=== PATIENT | male | born 1980 | race Two or more races ===

== ENCOUNTER 2017-07-11 22:59 | Inpatient (IN) | payer SELFPAY ==
[~2017-07-11] VITALS: Ht 177.8 cm; Wt 83.9 kg
[2017-07-11] MEDS ORDERED: diphenhydrAMINE HCL 50 MG/ML VIAL ONE (23:05)
[2017-07-11] MEDS ORDERED: LORAZEPAM INJ 2 MG/ML VIAL ONE (23:05)
[2017-07-11] MEDS ORDERED: HALOPERIDOL LACTATE INJ 5 MG/ML VIAL ONE (23:05)
--- NOTE | 2017-07-11 23:19 | NUR ---
[facility] to ER; altered- possible OD on drugs
[2017-07-11 23:22] LABS: BASOPHILS % (AUTO) 0.5 % (0.0-2.0); EOSINOPHILS % (AUTO) 0.3 % (0.0-6.0); HEMATOCRIT 46 % (39-51); HEMOGLOBIN 15.6 g/dL (13.5-17.5); LYMPHOCYTES # (AUTO) 2.8 /CMM (0.8-4.8); LYMPHOCYTES % (AUTO) 38.3 % (20.0-44.0); MEAN CORPUSCULAR HEMOGLOBIN 30 PG (26.0-33.0); MEAN CORPUSCULAR HGB CONC 34 g/dl (31.0-36.0); MEAN CORPUSCULAR VOLUME 87 fL (80-96); MONOCYTES # (AUTO) 0.6 /CMM (0.1-1.30); MONOCYTES % (AUTO) 7.7 % (2.0-12.0); NEUTROPHILS # (AUTO) 3.9 /CMM (1.8-8.9); NEUTROPHILS % (AUTO) 53.2 % (43.0-81.0); PLATELET COUNT (AUTO) 366 /CMM (150-450); RDW COEFFICIENT OF VARIATION 14.9 (11.5-15.0); RED BLOOD CELL COUNT(AUTO) 5.28 MIL/uL (4.5-6.0); WHITE BLOOD COUNT (AUTO) 7.4 K/uL (4.3-11.0)
[2017-07-11] MEDS ORDERED: HALOPERIDOL LACTATE INJ 5 MG/ML VIAL IVP ONE (23:30)
[2017-07-11] MEDS ORDERED: IV NS 0.9% 1,000 ML BAG IV ONE (23:30)
[2017-07-11] MEDS ORDERED: LORAZEPAM INJ 2 MG/ML VIAL IVP ONE (23:30)
[2017-07-11] MEDS ORDERED: diphenhydrAMINE HCL 50 MG/ML VIAL IV ONE (23:30)
--- NOTE | 2017-07-11 23:32 | NUR ---
med given as ordered by
--- NOTE | 2017-07-11 23:33 | NUR ---
PT ON MONITOR, IN BED, IV PLACED, LABS DRAWN AND SENT TO LAB, MD MADE AWARE WILL CONTINUE TO MONITOR.
[2017-07-11 23:52] LABS: CALCIUM, SERUM 9.4 mg/dL (8.5-10.1); CARBON DIOXIDE 19 mmol/L (21-32); CHLORIDE 100 mmol/L (98-107); CREATININE 2.3 mg/dL (0.6-1.3); GLUCOSE 213 mg/dL (74-106); POTASSIUM 3.2 mmol/L (3.5-5.1); SODIUM SERUM 146 mmol/L (136-145); UREA NITROGEN, BLOOD 14 mg/dL (7-18)
[2017-07-11 23:53] LABS: ALANINE AMINOTRANSFERASE 210 U/L (12-78); ALBUMIN 5.2 g/dL (3.4-5.0); ALCOHOL, BLOOD 126 mg/dL (0-0); ALKALINE PHOSPHATASE 94 U/L (46-116); ASPARTATE AMINOTRANSFERASE 462 U/L (15-37); BILIRUBIN,DIRECT 0.2 mg/dL (0.0-0.2); BILIRUBIN,TOTAL 1.2 mg/dL (0.2-1.0); SALICYLATE 0.7 mg/dL (2.8-20.0); TOTAL PROTEIN, SERUM 9.6 g/dL (6.4-8.2)
[2017-07-11 23:54] LABS: ACETAMINOPHEN 0 ug/ml (10-30)
[2017-07-12 00:02] LABS: CREATINE KINASE, TOTAL 16391 U/L (39-308)
--- NOTE | 2017-07-12 00:20 | NUR ---
PT ON MONITOR, PT GOING XRAY, MADE AWARE WILL CONTINUE TO MONITOR.
--- NOTE | 2017-07-12 00:20 | NUR ---
LAB AT BEDSIDE DRAWING
[2017-07-12] MEDS ORDERED: IV 1/2NS 1000 ML 1,000 ML IV ONE (00:43)
[2017-07-12 00:49] LABS: INR 1.04 (0.87-1.13); PROTHROMBIN TIME 11.1 SECS (9.5-12.7)
[2017-07-12] MEDS ORDERED: SODIUM BICARBONATE 5 ML VIAL ONE (00:57)
[2017-07-12] MEDS ORDERED: IV NS 0.9% 1,000 ML BAG IV ONE (01:00)
--- NOTE | 2017-07-12 01:03 | NUR ---
ASSUMED CARE. RECEIVED REPORT FROM ALYSA HERZOG. PT AAOX4 CALM AND COOPERATIVE. TOTAL PT CARE DONE. PT DENIES PAIN OR DISCOMFORT AT THIS TIME. CALL LIGHT WITHIN REACH. WILL CONTINUE TO MONITOR PT CLOSELY.
[2017-07-12 01:13] LABS: CREATINE KINASE MB 82.6 ng/mL (0-3.6)
[2017-07-12] MEDS ORDERED: TDAP [DIPH/PERTUSSIS/TET] 0.5 ML VIAL IM ONE ×2 (01:30→02:45)
[2017-07-12 01:39] LABS: TROPONIN I < 0.017 ng/mL (0.00-0.056)
--- NOTE | 2017-07-12 01:52 | NUR ---
PT AAOX4 NO ACUTE DISTRESS NOTED, RESP EVEN AND UNLABORED. PT CALM AND COOPERATIVE AT THIS TIME.
[2017-07-12] MEDS ORDERED: BUPIVACAINE 0.5 % PF 150 MG/30 ML VIAL ONE (02:01)
--- NOTE | 2017-07-12 02:34 | NUR ---
REPORT CALLED TO TEAM MEMBERALYSA KAUR. WILL TRANSPORT PT TO ROOM 313-1
[2017-07-12] MEDS ORDERED: IV 1/2NS 1000 ML 500 ML IV ONE (02:40)
[2017-07-12] MEDS ORDERED: Z GUARD REMEDY 2 OZ OINT TP PRN (03:00)
[2017-07-12] MEDS ORDERED: ONDANSETRON HCL/PF 4 MG/2 ML VIAL IVP PRN (03:00)
[2017-07-12] MEDS ORDERED: MORPHINE SULFATE INJ 2 MG/ML DISP.SYRIN IV PRN (03:00)
[2017-07-12] MEDS ORDERED: ACETAMINOPHEN 325 MG TABLET PO PRN (03:00)
[2017-07-12] MEDS ORDERED: SODIUM BICARBONATE SYR 100 MEQ in IV D5W 1,000 ML IV PRN (03:00)
[2017-07-12] MEDS ORDERED: ZOLPIDEM TARTRATE 5 MG TABLET PO PRN (03:00)
--- NOTE | 2017-07-12 03:30 | NUR ---
PT TRASNPORTED TO TELE VIA ACLS PROTOCOL.
[2017-07-12] MEDS: IV NS 0.9% 1,000 ML IV PRN ×3 (03:55→08:08)
[2017-07-12 04:00] VITALS: BP 142/93
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
[2017-07-12] MEDS: CEFAZOLIN 2 GM in IV D5W 50 ML IV SCH ×3 (04:56→20:19)
--- NOTE | 2017-07-12 05:12 | NUR ---
MANAGEMENT SPECIALIST NOTES ANCEF 2 GM IN D5W 50 ML SCHEDULED AT 0500 PATIENT REFUSES HIS I.V ANTIBIOTIC PER PATIENT HE DOESN'T NEED IT AND VERBALIZE THAT "I DON'T WANT ANY ANTIBIOTIC IN MY SYSTEM" DESPITE EXPLANATION OF RISKS AND BENEFITS, Nicky MADE AWARE OF PATIENT BEING NON COMPLIANT WITH HIS MEDICATION
--- NOTE | 2017-07-12 06:20 | NUR ---
PAINT MIXER HAND NOTES NA BICARB 100 MEQ IN D5W IN 1000L UNABLE TO START CALLED CHARGE NURSE BUT IT IS NOT AVAILABLE IN THE OMNICE[facility], CALLED NURSING MACHINE REBUILDER IT NOT AVAILABLE WELL, WILL FF WITH THE PHARMACY TODAY.
[2017-07-12 06:41] LABS: BASOPHILS % (AUTO) 0.4 % (0.0-2.0); HEMATOCRIT 36 % (39-51); HEMOGLOBIN 12.3 g/dL (13.5-17.5); LYMPHOCYTES # (AUTO) 1.3 /CMM (0.8-4.8); LYMPHOCYTES % (AUTO) 18.8 % (20.0-44.0); MEAN CORPUSCULAR HEMOGLOBIN 30 PG (26.0-33.0); MEAN CORPUSCULAR HGB CONC 34 g/dl (31.0-36.0); MEAN CORPUSCULAR VOLUME 87 fL (80-96); MONOCYTES # (AUTO) 0.8 /CMM (0.1-1.30); MONOCYTES % (AUTO) 12.2 % (2.0-12.0); NEUTROPHILS # (AUTO) 4.6 /CMM (1.8-8.9); NEUTROPHILS % (AUTO) 68.6 % (43.0-81.0); PLATELET COUNT (AUTO) 230 /CMM (150-450); RDW COEFFICIENT OF VARIATION 15.2 (11.5-15.0); RED BLOOD CELL COUNT(AUTO) 4.11 MIL/uL (4.5-6.0); WHITE BLOOD COUNT (AUTO) 6.8 K/uL (4.3-11.0)
--- NOTE | 2017-07-12 06:42 | NUR ---
SWITCHBOX ASSEMBLER NOTES PATIENT COMFORTABLY ASLEEP AND EASILY AWAKEN, HEAD OF BED ELEVATED FOR BETTER LUNG EXPANSION AND GOOD CIRCULATION. NOT IN ACUTE/RESPIRATORY DISTRESS. TOLERATING ROOM AIR 02 SAT 98% RESPIRATIONS EVEN AND UNLABORED PATIENT RFA 18 G IV SITE INTACT WITH NO S/S OF INFILTRATED PATENT AND FLUSHED, FREQUENT VISUAL CHECK DONE FOR SAFETY EVERY 2 HOURS. NURSING CARE RENDERED, NEEDS ATTENDED AND ANTICIPATED, KEPT CLEAN AND DRY AND COMFORTABLE, PATIENT STILL REFUSES WOUND ASSESSMENT OF HIS SKIN. SAFE HAZARD FREE ENVIRONMENT PROVIDED. CALL LIGHT WITHIN EASY TO REACH, ON LOW BED AT ALL TIMES TO ENSURE SAFETY, WILL ENDORSE TO THE NEXT SHIFT CONTINUE PLAN OF CARE
--- NOTE | 2017-07-12 06:45 | NUR ---
FLIGHT INFORMATION EXPEDITER NOTES RE ORIENTATION WAS DONE WITH THE PATIENT
[2017-07-12 07:16] LABS: CALCIUM, SERUM 7.2 mg/dL (8.5-10.1); MAGNESIUM 1.5 mg/dL (1.8-2.4); PHOSPHORUS 3.8 mg/dL (2.5-4.9)
[2017-07-12 08:00] VITALS: BP 120/71
--- NOTE | 2017-07-12 08:16 | NUR ---
RN NOTES RECEIVED PT. PT IS STABLE AND RESTING IN BED, A/OX4. NO S/S OF DISTRESS OR SOB. NO C/O PAIN AT THIS TIME. 1 TO 1 SITTER IS AT BEDSIDE. PT IS ON ROOM AIR, O2SAT WNL. IV ACCESS LOCATED ON RIGHT FOREARM, 18G. RUNNING NS AT 500 ML/HR. SAFETY MEASURES IN PLACE, CALL LIGHT WITHIN REACH. WILL CONTINUE TO MONITOR.
[2017-07-12] MEDS ORDERED: POTASSIUM CHLORIDE 20 MEQ TAB.PRT.SR PO ONE (09:30)
[2017-07-12] MEDS: Thiamine 100 MG in IV D5W 50 ML IV SCH (10:19)
[2017-07-12] MEDS: Magnesium 1GM/D5W 100ML PREMIX 100 ML IV SCH ×2 (13:32→15:56)
[2017-07-12 16:00] VITALS: BP 136/91
[2017-07-12] MEDS: MORPHINE SULFATE INJ 4 MG/ML DISP.SYRIN IV PRN ×2 (16:08→20:23)
--- NOTE | 2017-07-12 18:50 | NUR ---
RN CLOSING NOTES PT IS IN BED RESTING. NO S/S OF DISTRESS OR SOB. NO C/O PAIN AT THIS TIME. PT HAS MADE A REQUEST FOR NO VISITORS, WILL F/U WITH SECURITY. ALL PT NEEDS ANTICIPATED AND MET. SAFETY MEASURES IN PLACE, CALL LIGHT WITHIN REACH. WILL ENDORSE TO ACADEMIC DEPARTMENT CHAIR FOR RACHAEL.
--- NOTE | 2017-07-12 19:25 | NUR ---
RN NOTES RECEIVED PT AWAKE, HOB ELEVATED, NO SOB, NOT IN DISTRESS, ON ROOM AIR AND TOLERATED WELL. PT ALERT AND ORIENTED X4, DENIES ANY PAIN AND DISCOMFORT AT THIS TIME. PT IS CALM, QUIET AND COOPERATIVE, SITTER AT BEDSIDE FOR SAFETY. TELEMONITOR READS SINUS RHYTHM WITH HEART RATE AT82. IV ACCESS ON RIGHT FOREARM PATENT AND INTACT BOTH LOWER EXTREMITY ELEVATED ON A PILLOW. KEPT COMFORTABLE AND ATTENDED. WILL CONTINUE TO MONITOR PT.
[2017-07-12 20:00] VITALS: BP 139/90
--- NOTE | 2017-07-12 20:23 | NUR ---
RN NOTES PT COMPLAINS OF RIGHT KNEE PAIN 07/19, MORPHINE 2 MG IV GIVEN. WILL CONTINUE TO MONITOR PT.
[2017-07-12 22:00] VITALS: BP 139/90
--- NOTE | 2017-07-12 22:01 | NUR ---
RN NOTES PT VERBALIZED THE MORPHINE IS NOT HELPING HIM WITH THE PAIN, PT IS REQUESTING FOR NORCO. DR PITT MADE AWARE WITH ORDER OF NORCO10/325 MG TAB PO Q4H PRN. PT MADE AWARE. NOTED AND CARRIED OUT.
[2017-07-12 23:26] VITALS: BP 149/92
[2017-07-13] VITALS (7 sets, daily range): BP systolic 131–148; BP diastolic 79–87
--- NOTE | 2017-07-13 00:20 | NUR ---
RN NOTES PT COMPLAINS OF RIGHT KNEE 05/18, NORCO 10/325 MG TAB GIVEN PO. WILL CONTINUE TO MONITOR PT.
[2017-07-13] MEDS ORDERED: HYDROCODONE/APAP 10/325MG 1 EA TABLET ONE ×2 (00:21→04:08)
[2017-07-13] MEDS: HYDROCODONE/APAP 10/325MG 1 EA TABLET PO PRN ×5 (00:26→20:00)
[2017-07-13] MEDS: CEFAZOLIN 2 GM in IV D5W 50 ML IV SCH ×3 (04:15→20:00)
--- NOTE | 2017-07-13 04:27 | NUR ---
RN NOTES PT VERBALIZED PAIN ON HIS RIGHT KNEE 05/18, NORCO 5/235 NG TAB GIVEN. WILL CONTINUE TO MONITOR PT,
--- NOTE | 2017-07-13 07:05 | NUR ---
MS RN OPENING NOTES RECEIVED PT. FROM NIGHTSMDFT NURSE IN STABLE CONDITION. T IS A/O X3. NO SOB OR SIGNS OF DISTRESS NOTED. BREATHING IS EVEN AND UNLABORED. MULTIPLE SUPERFICIAL WOUNDS NOTED ON PT'S BODY. WOUND CARE PROVIDED BY NIGHTSMDFT NURSE. DRESSINGS ARE CLEAN, DRY AND INTACT. PT. REPORTS AND ACHING RIGHT KNEE PAIN RATED A 6/10. PT STATES THAT HE CAN MANAGE WITH THE PAIN UNTIL THE NEXT PAIN MEDICATION IS DUE. IV PRESENT ON RIGHT FOREARM 18G. IV IS PATENT AND INTACT. NO REDNESS OR SIGNS OF INFILTRATION NOTED. BED IN LOW LOCKED POSITION, SIDE RAILS UP X2, CALL LIGHT WITHIN REACH. WILL CONTINUE TO MONITOR. Addendum: 07/13/17 at 0804 by MELVA TOLEDO RN INTEGRATED CAMPAIGN MANAGER OPENING NOTES PT IS SR ON THE [employer] MONITOR WITH A HR OF 84
[2017-07-13 07:13] LABS: BASOPHILS % (AUTO) 0.6 % (0.0-2.0); EOSINOPHILS % (AUTO) 0.6 % (0.0-6.0); HEMATOCRIT 40 % (39-51); HEMOGLOBIN 13.6 g/dL (13.5-17.5); LYMPHOCYTES # (AUTO) 1.7 /CMM (0.8-4.8); LYMPHOCYTES % (AUTO) 32.2 % (20.0-44.0); MEAN CORPUSCULAR HEMOGLOBIN 30 PG (26.0-33.0); MEAN CORPUSCULAR HGB CONC 35 g/dl (31.0-36.0); MEAN CORPUSCULAR VOLUME 87 fL (80-96); MONOCYTES # (AUTO) 0.5 /CMM (0.1-1.30); MONOCYTES % (AUTO) 9.3 % (2.0-12.0); NEUTROPHILS % (AUTO) 57.3 % (43.0-81.0); PLATELET COUNT (AUTO) 245 /CMM (150-450); RDW COEFFICIENT OF VARIATION 14.5 (11.5-15.0); RED BLOOD CELL COUNT(AUTO) 4.52 MIL/uL (4.5-6.0); WHITE BLOOD COUNT (AUTO) 5.2 K/uL (4.3-11.0)
--- NOTE | 2017-07-13 07:16 | NUR ---
RN NOTES PT ASLEEP, BREATHING REGULAR AND UNLABORED, NO SOB, NOT IN DISTRESS, ON ROOM AIR WITH GOOD SATURATION. PT CALM, QUIET, AND COOPERATIVE WITH TREATMENT AND CARE, SITTER AT BEDSIDE FOR SAFETY. KEPT PAIN AT TOLERABLE LEVEL. WOUND DRESSING DONE. ALL DUE MEDS GIVEN. ALL NEEDS ATTENDED. WILL ENDORSE TO MORNING RN FOR CONTINUITY OF CARE.
[2017-07-13 07:41] LABS: ALBUMIN 3.7 g/dL (3.4-5.0); BILIRUBIN,TOTAL 1.1 mg/dL (0.2-1.0); CALCIUM, SERUM 7.9 mg/dL (8.5-10.1); CREATININE 0.8 mg/dL (0.6-1.3); MAGNESIUM 1.9 mg/dL (1.8-2.4); PHOSPHORUS 3.5 mg/dL (2.5-4.9); POTASSIUM 3.1 mmol/L (3.5-5.1); TOTAL PROTEIN, SERUM 7.5 g/dL (6.4-8.2)
[2017-07-13 07:49] LABS: THYROID STIMULATING HORMONE 3.299 uIU/mL (0.358-3.74)
[2017-07-13] MEDS: Thiamine 100 MG in IV D5W 50 ML IV SCH (08:34)
[2017-07-13] MEDS ORDERED: SODIUM BICARBONATE SYR 50 MEQ/50 ML DISP.SYRIN IV ONE (09:19)
[2017-07-13] MEDS: LORAZEPAM INJ 2 MG/ML VIAL IV PRN (10:45)
[2017-07-13] MEDS: POTASSIUM CHLORIDE 20 MEQ TAB.PRT.SR PO SCH ×2 (10:45→12:13)
[2017-07-13] MEDS: IV NS 0.9% 1,000 ML IV PRN (12:13)
--- NOTE | 2017-07-13 13:12 | NUR ---
ELECTRONICS SPECIALIST NOTES DR. KIRBY ASKED THAT I CONTACT THE ORTHOPEDIC TEAM TO EVALUATE THE PT. MAYLIN WAS CONTACTED BY DR. KIRBY AND STATED THAT HE IS NOT CREATIVE SERVICES SPECIALIST AND TO. MULTIPLE ATTEMPTS HAVE BEEN MADE TO CONTACT THE CREATIVE SERVICES SPECIALIST ORTHOPEDIC, HOWEVER THE CALL CONTINUE TO GO TO THE CAP AND STUD MACHINE OPERATOR. WES THE CHARGE NURSE WAS MADE AWARE AND STATED THAT SHE WILL ALSO TRY TO CONTACT THEM.
--- NOTE | 2017-07-13 14:23 | NUR ---
MS RN NOTES [facility] HAS CONTACTED COURNba IN REGARDS TO THE ORTHO CONSULT. IT IS LIKELY THAT HE WILL SEE THE PT TOMORROW, BUT IT IS NOT SET IN STONE OF NOW. THE ORDER FOR ORTHO CONSULT HAS BEEN PLACE.
--- NOTE | 2017-07-13 18:40 | NUR ---
MS RN CLOSING NOTES PT. REMAINS IN STABLE CONDITION. IV IS NOW ON RIGHT FA 22G. IV IS PATENT, INTACT, AND INFUSING NS @ 125ML/HR. PT IS TOLERATING INFUSION WELL. NO REDNESS OR SIGNS OF INFILTRATION NOTED. PT. DOES NOT COMPLAIN OF PAIN AT THIS TIME. ALL NEEDS WERE MET DURING SHIFT AND ORDERS CARRIED OUT ACCORDINGLY. WILL ENDORSE TO NIGHTSHIFT NURSE FOR RACHAEL
[2017-07-14] MEDS: HYDROCODONE/APAP 10/325MG 1 EA TABLET PO PRN ×3 (00:17→09:12)
[2017-07-14] MEDS: CEFAZOLIN 2 GM in IV D5W 50 ML IV SCH ×2 (05:26→12:19)
[2017-07-14] MEDS: IV NS 0.9% 1,000 ML IV PRN (05:44)
--- NOTE | 2017-07-14 06:13 | NUR ---
MS RN NOTE PATIENT ASLEEP IN BED. NO S/S OF PAIN OR DISCOMFORT. ALL NEEDS MET AND ATTENDED TO. BED LOCKED AND IN LOWEST POSITION. SIDE RAILS UP CALL LIGHT WITHIN REACH. SITTER AT BEDSIDE.WILL ENDORSE TO DAY SHIFT FOR RACHAEL.
--- NOTE | 2017-07-14 07:50 | NUR ---
RN NOTES RECEIVED PT. PT IS STABLE AND AWAKE IN BED. A/OX3. PT IS ON RA, O2SAT >95%. IV ACCESS LOCATED ON RIGHT FOREARM 22G, RUNNING NS AT 125 ML/HR. SAFETY MEASURES IN PLACE, CALL LIGHT WITHIN REACH. WILL CONTINUE TO MONITOR.
[2017-07-14 08:00] VITALS: BP 119/74
[2017-07-14] MEDS ORDERED: THIAMINE HCL 100 MG TABLET PO SCH (09:00)
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
[2017-07-14] MEDS: LORAZEPAM INJ 2 MG/ML VIAL IV PRN (11:24)
[2017-07-14] MEDS ORDERED: IBUPROFEN 400 MG TABLET PO PRN (14:30)
--- NOTE | 2017-07-14 16:22 | NUR ---
DISCHARGE NOTE PT IS DISCHARGED HOME. VSS, NO S/S OF DISTRESS OR SOB. PT HAS NO C/O PAIN AT THIS MOMENT. PT DISCHARGED WITH CANE SUPPLIED BY [employer]. IV ACCESS REMOVED. PT GIVEN APPROPRIATE DISCHARGE TEACHING BASED ON EXIT CARE. PT VERBALIZES UNDERSTANDING OF TEACHING. BELONGINGS AND DISCHARGE PAPERWORK SIGNED. PT PICKED UP BY [employer] TO BE DRIVEN HOME.
== END 2017-07-14 16:00 | disposition home or self-care (01) | DRG 896 ==
LOC: ER 23:01 → TELE 07-12 01:49 → MED 07-13 13:28
PROVIDERS: ADMIT Nurse Practitioner Acute Care; ATTEND Nurse Practitioner Acute Care
PROC: 0HCKXZZ Extirpation of Matter from Right Lower Leg Skin, External Approach (ICD-10-PCS; principal; 2017-07-12)
DX: F10.129 Alcohol abuse with intoxication, unspecified (principal); G92 Toxic encephalopathy; N17.0 Acute kidney failure with tubular necrosis; M62.82 Rhabdomyolysis; E83.42 Hypomagnesemia; S81.801A Unspecified open wound, right lower leg, initial encounter; E87.1 Hypo-osmolality and hyponatremia; S81.021A Laceration with foreign body, right knee, initial encounter; E87.6 Hypokalemia; F17.210 Nicotine dependence, cigarettes, uncomplicated; F41.9 Anxiety disorder, unspecified; Z59.0 Homelessness; R74.0 Nonspecific elevation of levels of transaminase and lactic acid dehydrogenase [LDH]; F19.10 Other psychoactive substance abuse, uncomplicated; S51.812A Laceration without foreign body of left forearm, initial encounter; Y08.89XA Assault by other specified means, initial encounter; Y93.9 Activity, unspecified; Y92.9 Unspecified place or not applicable; Y99.9 Unspecified external cause status; Z87.311 Personal history of (healed) other pathological fracture; Y90.6 Blood alcohol level of 120-199 mg/100 ml; S61.021A Laceration with foreign body of right thumb without damage to nail, initial encounter
CPT/HCPCS: 36415; 73090-TC; 73130-TC; 73564-TC; 80048-TC; 80053-TC; 80061-TC; 80076-TC; 82550-TC; 82553-TC; 83735-TC; 84100-TC; 84443-TC; 84484-TC; 85025-TC; 85730-TC; 87081-TC; 90715; 93307-TC; A4606; A6402; A6403; G0480; J0690; J1200; J1630; J2060; J2270; J3411; J3475; J3490; J7030; J7060; J7070; Z7610

== ENCOUNTER → 2017-07-18 | Emergency (ER) | payer SELFPAY ==
[~2017-07-18] VITALS: Ht 180.3 cm; Wt 77.1 kg
[2017-07-18 16:24] VITALS: BP 130/56
--- NOTE | 2017-07-18 17:04 | NUR ---
WOUND K LEFT FA CLEAN EDGES VSSPatient discharged to home in stable condition. Written and verbal after care instructions given. Patient verbalizes understanding of instruction.
== END | disposition home or self-care (01) ==
LOC: ER 16:26
DX: S51.812D Laceration without foreign body of left forearm, subsequent encounter (principal); S81.011D Laceration without foreign body, right knee, subsequent encounter; N18.9 Chronic kidney disease, unspecified; G93.40 Encephalopathy, unspecified
CPT/HCPCS: A4606; Z7502; Z7610